=== PATIENT | female | born 1960 | race Hispanic/Latino ===

== ENCOUNTER 2018-08-04 12:49 | Outpatient (CLI) | payer BC ==
--- NOTE | 2018-08-04 13:45 | MMO ---
BILATERAL SCREENING MAMMOGRAM: Date: 08/04/18 HISTORY: 58-year-old female. Routine screening mammography. COMPARISON: 10/11/13, 03/26/15, 04/07/16, 07/22/17. TECHNIQUE: CC and MLO views of both breasts are submitted for interpretation. This patient's mammogram was reviewed with the assistance of computer-aided detection. FINDINGS: The breasts are composed of scattered fibroglandular tissue. Bilaterally, no suspicious dominant mass , architectural distortion, or suspicious calcifications. There are bilateral benign-appearing calcif ications. IMPRESSION: BIRADS 2: Benign Finding(s) RECOMMENDATION: Annual mammogram. POS: [facility]
== END 2018-08-04 12:50 | disposition home or self-care (01) ==
LOC: SCSMAMMO 12:49
PROVIDERS: ATTEND Family Medicine
DX: Z12.31 Encounter for screening mammogram for malignant neoplasm of breast (principal)
CPT/HCPCS: 77067

== ENCOUNTER 2023-06-09 17:30 | Outpatient (CLI) | payer BC | END 2023-06-09 17:31 | disposition home or self-care (01) | LOC: SLEEPLAB 17:30 | PROVIDERS: ATTEND Family Medicine | DX: G47.33 Obstructive sleep apnea (adult) (pediatric) (principal); R53.83 Other fatigue; E66.9 Obesity, unspecified; R06.83 Snoring; G47.00 Insomnia, unspecified; E78.5 Hyperlipidemia, unspecified; K57.90 Diverticulosis of intestine, part unspecified, without perforation or abscess without bleeding; M85.88 Other specified disorders of bone density and structure, other site; M19.90 Unspecified osteoarthritis, unspecified site; N18.9 Chronic kidney disease, unspecified; F32.A Depression, unspecified; R73.03 Prediabetes; Z68.31 Body mass index [BMI] 31.0-31.9, adult | CPT/HCPCS: 95800 ==

== ENCOUNTER 2023-07-23 19:00 | Outpatient (CLI) | payer BC | END 2023-07-23 19:01 | disposition home or self-care (01) | LOC: SLEEPLAB 19:00 | PROVIDERS: ATTEND Family Medicine | DX: G47.33 Obstructive sleep apnea (adult) (pediatric) (principal); E66.9 Obesity, unspecified; R06.83 Snoring; G47.00 Insomnia, unspecified; R53.83 Other fatigue | CPT/HCPCS: 95811 ==